=== PATIENT | female | born 1985 | race Caucasian/White ===

== ENCOUNTER 2019-01-16 05:47 | Day surgery (SDC) | payer OTHER ==
[~2019-01-16] VITALS: Ht 167.6 cm; Wt 74.8 kg
[~2019-01-16 05:47] MED LIST: ONE DAILY WOME1 EAC3 PO
[2019-01-16 07:47] VITALS: BP 102/56
[2019-01-16 10:00] VITALS: BP 102/56
--- NOTE | 2019-01-21 17:45 | O ---
[facility] [place] [address] OPERATIVE REPORT Name: VINNY GUERRERO Room #: DEP [facility]#: [id number] Admission: 01/16/19 ������������������ Attend Phys: Jeff Lynch MD Discharge: 01/16/19 ������������������ Date of : 87 Report #: [id number] THIS REPORT FOR: //name// CC: Jayden Lynch DATE OF SERVICE: 01/16/2019 SERVICE: Orthopedics. FACILITY: [facility]. SURGEON: Jeff Lynch M.D. BEARING MAKER: Enriqueta Guerrero NP. INDICATION FOR BEARING MAKER: Graft preparation, extremity positioning, assistance with the reconstruction, arthroscope management and suture management and closure. PREOPERATIVE DIAGNOSES: 1. Left knee injury. 2. Left knee anterior cruciate ligament tear. 3. Left knee medial and lateral meniscus tears. POSTOPERATIVE DIAGNOSES: 1. Left knee injury. 2. Left knee anterior cruciate ligament tear. 3. Left knee medial and lateral meniscus tears. 4. Left knee chondromalacia. 5. Left knee loose bodies. PROCEDURES: 1. Left knee arthroscopically assisted ACL reconstruction with allograft. 2. Left knee partial lateral meniscectomy. 3. Left knee arthroscopic medial meniscus repair. 4. Arthroscopic loose body, left knee. HISTORY OF PRESENT ILLNESS: The patient is a 33-year-old female who sustained an injury to her left knee that resulted in an ACL rupture and meniscal tears. She presented with acutely stiff painful knee and was initially treated with a period of rehabilitation to restore range of motion, ambulation and motor control. With discussion about treatment options, she wished to have definitive surgical treatment, after risks, benefits, alternatives and indications for surgery were reviewed with her. Risks include but not limited to pain, bleeding, infection, injury to nerves or blood vessels, persistent pain despite [facility] [address] [place] [address] OPERATIVE REPORT Name: VINNY GUERRERO Room #: [place] [facility]#: [id number] Admission: 01/16/19 ������������������ Attend Phys: Jeff Lynch MD Discharge: 01/16/19 ������������������ Date of : [birth year] Report #: [id number] surgical intervention, failure of any repairs or reconstructions, progression of preexisting chondral injury, stiffness, need for further surgery as well as complications related to anesthesia such as stroke, heart attack, pulmonary complications, thromboembolic disease and . Despite these risks, she wished to proceed. PROCEDURE IN DETAIL: After the left lower extremity was correctly identified in the preoperative holding area as the operative extremity, the patient underwent placement of single shot regional nerve block. She was then taken to the operating room, where general anesthesia was induced without complication with LMA. She was padded appropriately. Prophylactic antibiotics were administered at appropriate time. Tourniquet was applied to the left leg. Left lower extremity was then prepped and draped in standard sterile fashion. Time-out procedure was performed. The examination under anesthesia did demonstrate a positive anterior drawer, positive Amberly and positive pivot shift. Esmarch was utilized, tourniquet inflated to 250 mmHg. A standard anterolateral viewing portal was established, followed by anterior medial working portal. Upon placement of scope in the knee, a significant amount of chondral lesion was noted. There is a fissure in the central portion of the patella and then there were 3 lesions of the medial femoral condyle working from anterior to posterior, with the largest being in the weightbearing portion. There were just small areas where these were full thickness and these were chronic in appearance. There was no evidence of acute injury. There was some hemosiderin staining of the defects, likely due to hemarthrosis following the initial ACL injury. The ACL was clearly torn and had some scar tissue within the knee that was resected with a shaver. The PCL was intact. Attention was turned towards the medial compartment, where there was an unstable tear of the posterior horn of the medial meniscus. It could be displaced into the joint space, although the corner of the body and posterior horn appeared intact. I felt that repair was most appropriate and placed two Arthrex Meniscal Cinch devices with good compression of the posterior horn against the capsule. The meniscus was probed and found to be stable. The leg was placed in the [id number]-tv-[id number] position, the lateral compartment was evaluated. The MRI showed that she had a significant horizontal tear of the majority of the lateral meniscus. So I did employ the 70-degree arthroscope to have complete visualization of the meniscus. There was tearing and fraying of the inner one-third of the meniscus with a small flap and this was treated with debridement to stable perimeter with the biter and the shaver and then I carefully evaluated the substance of the meniscal body and the horizontal tear clearly healed. There was no residual horizontal tear, so no repair was required of the lateral meniscus. Underneath the lateral meniscus was a large loose body; there were in fact 4 loose bodies floating within the knee. The largest was on the order of 15-18 mm in size. These were all chondral fragments [facility] [address] [place] [address] OPERATIVE REPORT Name: VINNY GUERRERO Room #: [place] [facility] [place]#: [id number] Admission: 01/16/19 ������������������ Attend Phys: Jeff Lynch MD Discharge: 01/16/19 ������������������ Date of : 87 Report #: [id number] and were likely related to prior trauma based on best estimate. These were removed with a grasper without difficulty. The femoral and tibial footprints of the ACL were then resected with the shaver in a typical fashion. Then the Arthrex FlipCutter device was used to create a 9.5 x 20 mm socket within the femur in the typical position and then the FlipCutter guide was used to do the same on the tibia. The Arthrex allograft graft length was then passed into the knee and seated securely within the femur. Care was taken to assure that the button was seated on the lateral cortex and deep to the IT band. The knee was taken through range of motion and the graft was securely. After this, the graft was securely delivered into the tibial socket. The graft was tensioned with the reverse Amberly maneuver in extension and then the knee was taken through range of motion again and then it was re-tensioned and a secure fixation was felt to be achieved suture was then tied over the buttons on both sides. At this point, the Amberly was negative and the graft was very healthy appearing in its anatomic position. Arthroscopic effusion was drained and instruments removed. Portal sites and incisions were all closed. Sterile dressing was applied, followed by PolarCare device, a compression stocking and a knee immobilizer. She will be weightbearing as tolerated with range of motion as tolerated. She will be able to wean out of the knee immobilizer when she is able to perform a safe and successful straight leg raise. ��������������������������������������������� <ELECTRONICALLY SIGNED> ���������������������������������������� By: Jeff Lynch MD ��������������������������������������������� 01/21/19 [id number] Jeff Lynch MD /luis
== END 2019-01-16 12:27 | disposition home or self-care (01) ==
LOC: OR 05:47 → TBA 05:48 → OR 11:01
DX: S83.512A Sprain of anterior cruciate ligament of left knee, initial encounter (principal); S83.282A Other tear of lateral meniscus, current injury, left knee, initial encounter; S83.242A Other tear of medial meniscus, current injury, left knee, initial encounter; M94.262 Chondromalacia, left knee; X58.XXXA Exposure to other specified factors, initial encounter; Y93.89 Activity, other specified; Y92.89 Other specified places as the place of occurrence of the external cause; Y99.8 Other external cause status; Z88.8 Allergy status to other drugs, medicaments and biological substances; Z98.890 Other specified postprocedural states; Z79.899 Other long term (current) drug therapy
CPT/HCPCS: 50010; 50101; 50386; 50405; 51038; 51320; 52001; 52282; 52313; 54170; 55430; 56524; 56527; 57103; 57180; 57259; 62110; 62900; 70005